=== PATIENT | male | born 1955 | race Caucasian/White ===

== ENCOUNTER 2016-09-19 23:34 | Emergency (ER) | payer OTHER ==
[~2016-09-19] VITALS: Ht 170.2 cm; Wt 68.0 kg
[~2016-09-19 23:34] MED LIST: APIX5TAB PO; ATOR10 PO; GLIP5 PO; METF500 PO; METO25 PO; OMEP20CA5 PO; PANT40P PO; PRIN10TA PO
[2016-09-19 23:40] VITALS: BP 193/99; PULSE 101; RESP 18; TEMP 97.9; O2SAT 96
[2016-09-19 23:58] VITALS: BP 172/80; PULSE 101; RESP 16; O2SAT 98
[2016-09-20] MEDS ORDERED: PRIN10TA PO (00:05)
[2016-09-20] MEDS ORDERED: METF500T PO (00:05)
[2016-09-20] MEDS ORDERED: GLIP5TAB8 PO (00:05)
[2016-09-20] MEDS ORDERED: PROT40TA PO (00:05)
[2016-09-20] MEDS ORDERED: PRIL20CA9 PO (00:05)
[2016-09-20] MEDS ORDERED: APIX5TAB PO (00:05)
[2016-09-20] MEDS ORDERED: LIPI10TA PO (00:05)
[2016-09-20] MEDS ORDERED: METO25TA3 PO (00:05)
[2016-09-20 00:17] LABS: AUTOMATED NEUTROPHIL # 4.9 TH/MM3 (1.8-7.7); BASOPHIL # 0.1 TH/MM3 (0-0.2); BASOPHIL % 0.6 % (0.0-2.0); EOSINOPHIL # 0.2 TH/MM3 (0-0.4); EOSINOPHIL % 2.7 % (0.0-4.0); HEMATOCRIT 40.9 % (39.0-51.0); HEMO FLAGS DIFF FINAL; LYMPH % 30.2 % (9.0-44.0); LYMPHOCYTE # 2.5 TH/MM3 (1.0-4.8); MEAN CELL VOLUME 90.4 FL (80.0-100.0); MEAN CORPUSCULAR HEMOGLOBIN 31.1 PG (27.0-34.0); MEAN CORPUSCULAR HGB CONC 34.4 % (32.0-36.0); MONO % 7.5 % (0.0-8.0); PLATELET COUNT 280 TH/MM3 (150-450); RED BLOOD COUNT 4.53 MIL/MM3 (4.50-5.90); RED CELL DISTRIBUTION WIDTH 12.9 % (11.6-17.2); WHITE BLOOD COUNT 8.4 TH/MM3 (4.0-11.0)
[2016-09-20] MEDS ORDERED: LORazepam 2 MG/ML VIAL IV PUSH ONE (00:30)
--- NOTE | 2016-09-20 00:34 | PD ---
HPI Chief Complaint: Cardiac Complaint Time Seen by Provider: 23:42 Travel History International Travel<30 days: No Contact w/Intl Traveler<30days: No Traveled to known affect area: No History of Present Illness HPI 61 year-old woman presents emergency department complaining that he had an increased heart rate a coughing spell tonight. Is been having bronchitis symptoms for past 3-4 weeks. He can feeling better for the past couple days. Tonight he had a coughing fit and afterward noticed his heart rate was elevated in the 120s and 130s. States he was coughing up some chapin junky stuff and was drooling and felt funny. She felt generally unwell following episode until he called the ambulance. He completed his amoxicillin, prednisone, and inhaler. History Past Medical History Narrative Medical A. fib Diabetes Hypertension hyperlipidemia Congenital blindness Tetanus Vaccination: > 5 Years Influenza Vaccination: Yes Social History Alcohol Use: No Tobacco Use: No Allergies-Medications (Allergen,Severity, Reaction): Coded Allergies: No Known Allergies (Verified , 09/19/16) Reported Meds & Prescriptions Reported Meds & Active Scripts Active Ventolin Hfa 18 GM Inh (Albuterol Sulfate) 90 Mcg/Act Aer 2 Puff INH Q4-6H PRN Hydrocodone-Homatropine Liq 5-1.5 Mg/5 Ml Syrp 5 Ml PO Q6H PRN Reported Protonix (Pantoprazole Sodium) 40 Mg Tab 40 Mg PO DAILY Prilosec (Omeprazole) 20 Mg Cap 20 Mg PO DAILY Metoprolol Tartrate 25 Mg Tab 25 Mg PO BID Metformin (Metformin HCl) 500 Mg Tab 500 Mg PO BIDPC With meals Prinivil (Lisinopril) 10 Mg Tab 10 Mg PO DAILY Glipizide 5 Mg Tab 5 Mg PO DAILY Take 30 minutes before a meal Lipitor (Atorvastatin Calcium) 10 Mg Tab 10 Mg PO HS Eliquis (Apixaban) 5 Mg Tab 5 Mg PO BID Review of Systems Except as stated in HPI: all other systems reviewed are Neg Physical Exam Narrative GENERAL: Generally well-appearing 61-year-old man, no acute distress. SKIN: Warm and dry. HEAD: Atraumatic. Normocephalic. CARDIOVASCULAR: Regular rate and rhythm. No murmur appreciated. RESPIRATORY: No respiratory distress. Some faint wheezing. No rhonchi. GASTROINTESTINAL: Abdomen soft, non-tender, nondistended. Hepatic and splenic margins not palpable. MUSCULOSKELETAL: No obvious deformities. No edema. NEUROLOGICAL: Awake and alert. No obvious cranial nerve deficits. Motor grossly within normal limits. Normal speech. PSYCHIATRIC: Appropriate mood and affect; insight and judgment normal. Data Data Last Documented VS Vital Signs Date Time Temp Pulse Resp B/P Pulse Ox O2 Delivery O2 Flow Rate FiO2 09/19/16 23:58 101 16 172/80 98 Room Air 09/19/16 23:40 97.9 Orders Complete Blood Count With Diff (09/19/16 23:54) Comprehensive Metabolic Panel (09/19/16 23:54) Chest, Single Ap (09/19/16 ) Lorazepam Inj (Ativan Inj) (09/20/16 00:30) Guaifen-Cod 200-20 Mg/10ml Liq (Robituss (09/20/16 00:45) Labs Laboratory Tests Test 09/20/16 00:00 White Blood Count 8.4 TH/MM3 Red Blood Count 4.53 MIL/MM3 Hemoglobin 14.1 GM/DL Hematocrit 40.9 % Mean Corpuscular Volume 90.4 FL Mean Corpuscular Hemoglobin 31.1 PG Mean Corpuscular Hemoglobin 34.4 % Concent Red Cell Distribution Width 12.9 % Platelet Count 280 TH/MM3 Mean Platelet Volume 9.4 FL Neutrophils (%) (Auto) 59.0 % Lymphocytes (%) (Auto) 30.2 % Monocytes (%) (Auto) 7.5 % Eosinophils (%) (Auto) 2.7 % Basophils (%) (Auto) 0.6 % Neutrophils # (Auto) 4.9 TH/MM3 Lymphocytes # (Auto) 2.5 TH/MM3 Monocytes # (Auto) 0.6 TH/MM3 Eosinophils # (Auto) 0.2 TH/MM3 Basophils # (Auto) 0.1 TH/MM3 CBC Comment DIFF FINAL Differential Comment Sodium Level 138 MEQ/L Potassium Level 4.1 MEQ/L Chloride Level 104 MEQ/L Carbon Dioxide Level 25.0 MEQ/L Anion Gap 9 MEQ/L Blood Urea Nitrogen 11 MG/DL Creatinine 0.97 MG/DL Estimat Glomerular Filtration 78 ML/MIN Rate Random Glucose 259 MG/DL Calcium Level 7.6 MG/DL Total Bilirubin 0.5 MG/DL Aspartate Amino Transf 32 U/L (AST/SGOT) Alanine Aminotransferase 34 U/L (ALT/SGPT) Alkaline Phosphatase 83 U/L Total Protein 6.1 GM/DL Albumin 3.1 GM/DL [facility] Medical Decision Making Medical Screen Exam Complete: Yes Emergency Medical Condition: Yes Interpretation(s) My review of EKG: Sinus tachycardia rate 100, normal axis, normal intervals, no acute ischemia. LABS: CBC is unremarkable. CMP My review of chest x-ray: Negative. Differential Diagnosis Bronchitis, pneumonia, A. fib, anxiety, other Narrative Course Medical decision making 61-year-old man with coughing fit followed by some tachycardia. His a history of A. fib and is could've been an A. fib episode. He is an anxious, and he could've had an episode of anxiety following a coughing fit. I don't see any evidence of pneumonia on the chest x-ray. Labs are unremarkable with exception of some hyperglycemia. We'll give him a stronger cough suppressant up from sleep at night. He had several violent coughing fits here. We'll also continue his inhaler given his wheezing on his exam. Recommend outpatient follow-up with his primary physician. Diagnosis Primary Impression: Cough Additional Impression: Palpitations Additional Instructions: Use inhaler every 4-6 hours until symptoms resolve. Use Hycodan syrup as needed for cough. Follow-up with your primary doctor in 2-3 days. Return to the emergency department for any new or worsening symptoms. Med/Other Pt SpecificInfo: Prescription(s) given Scripts Albuterol 18 GM Inh (Ventolin Hfa 18 GM Inh)90 Mcg/Act Aer2 Puff INH Q4-6H PRN ( SHORTNESS OF BREATH) #1 INHALER Prov:Derrick Macias MD 09/20/16 Hydrocodone-Homatropine Liq 5-1.5 Mg/5 Ml Syrp5 Ml PO Q6H PRN (COUGH) #100 ML Ref 0 Prov:Derrick Macias MD 09/20/16 Disposition: 01 DISCHARGE HOME Condition: Stable Derrick Macias MD Sep 20, 2016 00:33
[2016-09-20] MEDS ORDERED: VENTAER INH (00:38)
[2016-09-20] MEDS ORDERED: HYDR5SYP10 PO (00:38)
[2016-09-20] MEDS ORDERED: guaiFENesin/CODEINE SYRUP 200 MG/20 MG/10 ML CUP PO ONE (00:45)
--- NOTE | 2016-09-20 00:49 | RADRPT ---
EXAM DATE/TIME: 09/20/2016 00:12 [facility] COMPARISON: CHEST SINGLE AP, March 11, 2016, 13:21. INDICATIONS : Cough. MEDICAL HISTORY : A-Fib SURGICAL HISTORY : None. ENCOUNTER: Initial ACUITY: 1 day PAIN SCORE: 0/10 LOCATION: Bilateral chest FINDINGS: A single view of the chest demonstrates the lungs to be symmetrically aerated without evidence of mas s, infiltrate or effusion. The cardiomediastinal contours are unremarkable. Osseous structures are intact. CONCLUSION: No acute disease. Elroy Tate MD on September 20, 2016 at 0:47 Board Certified Radiologist. This report was verified electronically.
[2016-09-20 00:50] LABS: ALKALINE PHOSPHATASE 83 U/L (45-117); ALT (GPT) 34 U/L (12-78); ANION GAP 9 MEQ/L (5-15); AST (GOT) 32 U/L (15-37); BLOOD UREA NITROGEN 11 MG/DL (7-18); CHLORIDE 104 MEQ/L (98-107); GLOMERULAR FILTRATION RATE 78 ML/MIN (>89); SODIUM (NA) 138 MEQ/L (136-145); TOTAL BILIRUBIN ADULT 0.5 MG/DL (0.2-1.0)
[2016-09-20 00:55] LABS: POTASSIUM 4.1 MEQ/L (3.5-5.1)
--- NOTE | 2016-09-20 14:38 | EKG ---
Date Performed: 09/19/2016 Time Performed: 23:46:09 PTAGE: 61 years EKG: SINUS TACHYCARDIA ABNORMAL RHYTHM ECG PREVIOUS TRACING : 03/11/2016 13.07 No significant change from previous tracing noted. DOCTOR: Hilario Abad Interpretating Date/Time 09/20/2016 14:36:52
== END 2016-09-20 06:31 | disposition home or self-care (01) ==
LOC: NEPA 23:34
DX: R05 Cough (principal); R00.2 Palpitations; I48.91 Unspecified atrial fibrillation; E11.9 Type 2 diabetes mellitus without complications; I10 Essential (primary) hypertension; E78.5 Hyperlipidemia, unspecified; R94.31 Abnormal electrocardiogram [ECG] [EKG]
CPT/HCPCS: 71010; 80053; 85025; 93005; 96374; 99284; J2060